=== PATIENT | male | born 1955 | race Caucasian/White ===

== ENCOUNTER 2017-02-14 06:58 | Inpatient (IN) | payer OTHER ==
[~2017-02-14] VITALS: Ht 167.6 cm; Wt 73.5 kg
[~2017-02-14 06:58] MED LIST: AMOX1TAB61 PO; LEVO50TA PO
[2017-02-14] MEDS ORDERED: IV NORMAL SALINE 1000ML BAG 1,000 ML IV ONE (07:15)
[2017-02-14] MEDS ORDERED: MORPHINE SULFATE 4 MG/ML DISP.SYRIN. IV ONE ×2 (07:15→08:15)
[2017-02-14] MEDS ORDERED: ONDANSETRON PF 4 MG/2 ML VIAL. IV ONE (07:15)
--- NOTE | 2017-02-14 07:23 | PHYS DOC ---
Past Medical History Past Medical History: Other Additional Past Medical Histor: Thyroid Past Surgical History: Hip Replacement, Other Additional Past Surgical Histo: bilateral feet Alcohol Use: None Drug Use: None Adult General Chief Complaint Chief Complaint: ABDOMINAL PAIN HPI HPI Patient is a 61 year old male who presents with abdominal pain. He states it started gradually yesterday and worsened significantly this morning. No nausea or vomiting. He's had similar symptoms in the past with the Percocet diverticulitis. He denies any known fevers, no difficulty with bowel movements or urination. His last episode did not require surgery and occurred greater than a year ago. His primary care physician is Dr. Coombs Review of Systems Review of Systems Constitutional: Denies fever or chills [] Eyes: Denies change in visual acuity, redness, or eye pain [] HENT: Denies nasal congestion or sore throat [] Respiratory: Denies cough or shortness of breath [] Cardiovascular: Denies chest pain GI: per history of present illness : Denies dysuria or hematuria [] Musculoskeletal: Denies back pain or joint pain [] Integument: Denies rash or skin lesions [] Neurologic: Denies headache, focal weakness or sensory changes [] Endocrine: Denies polyuria or polydipsia [] Current Medications Current Medications Current Medications Medications (Trade) Dose Ordered Sig/Gabrielle Start Time Stop Time Status Last Admin Dose Admin Info (Do NOT chart on this entry -- for MONITORING) 1 each PRN DAILY PRN 02/14/17 08:15 02/16/17 08:14 Iohexol (Omnipaque 300 Mg/ml) 75 ml 1X ONCE 02/14/17 08:00 02/14/17 08:01 DC 02/14/17 08:12 75 ML Morphine Sulfate 4 mg 1X ONCE 02/14/17 08:15 02/14/17 08:16 DC Ondansetron HCl (Zofran) 4 mg 1X ONCE 02/14/17 07:15 02/14/17 07:16 DC 02/14/17 07:30 4 MG Sodium Chloride 1,000 ml @ 100 mls/hr 1X ONCE 02/14/17 07:15 02/14/17 17:14 02/14/17 07:32 100 MLS/HR Allergies Allergies Allergies Coded Allergies Type Severity Reaction Last Updated Verified No Known Drug Allergies 09/23/14 No Physical Exam Physical Exam Constitutional: Well developed, well nourished, there is uncomfortable secondary to pain HENT: Normocephalic, atraumatic, bilateral external ears normal, oropharynx moist, no oral exudates, nose normal. [] Eyes: PERRLA, EOMI, conjunctiva normal, no discharge. [] Neck: Normal range of motion, no tenderness, supple, no stridor. [] Cardiovascular:Heart rate regular with regular rhythm, no murmur [] Lungs & Thorax: Bilateral breath sounds clear to auscultation [] Abdomen: Distended abdomen with diffuse tenderness to palpation, firm to touch Skin: Warm, dry, no erythema, no rash. [] Back: No tenderness, no CVA tenderness. [] Extremities: No tenderness, no cyanosis, no clubbing, ROM intact, no edema. [] Neurologic: Alert and oriented X 3, normal motor function, normal sensory function, no focal deficits noted. [] Psychologic: Affect normal, judgement normal, mood normal. [] Current Patient Data Vital Signs Vital Signs Date Time Temp Pulse Resp B/P (MAP) Pulse Ox O2 Delivery O2 Flow Rate FiO2 02/14/17 09:30 72 16 143/66 (91) 96 Room Air 02/14/17 06:58 98.1 98.1 Lab Values Laboratory Tests Test 02/14/17 07:20 02/14/17 07:40 02/14/17 08:30 White Blood Count 11.8 x10^3/uL (4.0-11.0) H Red Blood Count 4.99 x10^6/uL (4.30-5.70) Hemoglobin 15.9 g/dL (13.0-17.5) Hematocrit 46.7 % (39.0-53.0) Mean Corpuscular Volume 94 fL (79-100) Mean Corpuscular Hemoglobin 32 pg (25-35) Mean Corpuscular Hemoglobin Concent 34 g/dL (31-37) Red Cell Distribution Width 13.6 % (11.5-14.5) Platelet Count 313 x10^3/uL (140-400) Neutrophils (%) (Auto) 83 % (31-73) H Lymphocytes (%) (Auto) 9 % (24-48) L Monocytes (%) (Auto) 7 % (0-9) Eosinophils (%) (Auto) 0 % (0-3) Basophils (%) (Auto) 0 % (0-3) Neutrophils # (Auto) 9.8 x10^3uL (1.8-7.7) H Lymphocytes # (Auto) 1.1 x10^3/uL (1.0-4.8) Monocytes # (Auto) 0.8 x10^3/uL (0.0-1.1) Eosinophils # (Auto) 0.0 x10^3/uL (0.0-0.7) Basophils # (Auto) 0.0 x10^3/uL (0.0-0.2) Total Bilirubin 1.1 mg/dL (0.2-1.0) H Direct Bilirubin 0.2 mg/dL (0.0-0.2) Aspartate Amino Transferase (AST) 26 U/L (15-37) Alanine Aminotransferase (ALT) 42 U/L (16-63) Alkaline Phosphatase 79 U/L (46-116) Total Protein 7.6 g/dL (6.4-8.2) Albumin 4.1 g/dL (3.4-5.0) Lipase 119 U/L (73-393) POC Hemoglobin 16.3 g/dL (14-18) POC Hematocrit 48 % (37-52) POC Sodium 136 mmol/L (135-145) POC Potassium 4.4 mmol/L (3.5-5.0) POC Chloride 103 mmol/L (98-110) POC Total CO2 26 mmol/L (23-32) Anion Gap 13 mmol/L (6-14) POC Blood Urea Nitrogen 13 mg/dL (8-26) POC Creatinine 0.9 mg/dL (0.5-1.4) Glucose Level 111 mg/dL (70-99) H POC Ionized Calcium (Inez) 1.13 mmol/L (1.13-1.32) Urine Collection Type Unknown Urine Color Yellow Urine Clarity Clear Urine pH 6.0 Urine Specific [place] >=1.030 Urine Protein Negative mg/dL (NEG-TRACE) Urine Glucose (UA) Negative mg/dL (NEG) Urine Ketones (Stick) Negative mg/dL (NEG) Urine Blood Negative (NEG) Urine Nitrite Negative (NEG) Urine Bilirubin Negative (NEG) Urine Urobilinogen Dipstick 1.0 mg/dL (0.2 mg/dL) Urine Leukocyte Esterase Negative (NEG) Urine RBC Occ /HPF (0-2) Urine WBC Occ /HPF (0-4) Urine Squamous Epithelial Cells Occ /LPF Urine Bacteria Few /HPF (0-FEW) Urine Mucus Mod /LPF Laboratory Tests 02/14/17 07:20 Laboratory Tests 02/14/17 07:40 EKG EKG [] Radiology/Procedures Radiology/Procedures CT abdomen and pelvis: IMPRESSION: 1. Mild sigmoid diverticulitis. No drainable collection. 2. There also appears to be segmental wall thickening along the ascending colon and ileum. Correlate for inflammatory bowel disease or infection as causes a ventral colitis. Correlation with current colonoscopic results is also recommended. 3. Small hiatal hernia. Distal esophageal wall thickening. Correlate for esophagitis. 4. Small umbilical hernia containing only fat. Course & Med Decision Making Course & Med Decision Making Patient was Pertinent Labs and Imaging studies reviewed. (See chart for details) Patient was given IV morphine, started on IV fluids. Patient with an acute abdomen, likely perforated viscus. Patient appears to be stable at this time and will take for CT of the abdomen. Pt's pain uncontrolled. Additional IV morphine given. CT shows diverticulitis, possible inflammatory bowel, no perforation. Pt is feeling more comfortable, but due to the severity of his symptoms and h/o of perforation, will admit overnight and pt started on cipro and flagyl IV. Contacted Dr. Coombs for admission. Dr. Nino returned the call and accepted the pt. Carlton Disclaimer Carlton Disclaimer This electronic medical record was generated, in whole or in part, using a voice recognition dictation system. Departure Departure Impression: Primary Impression: Diverticulitis Disposition: ADMITTED INPATIENT Admitting Physician: Manny Coombs Condition: GUARDED Referrals: MANNY COOMBS MD (PCP) GEO THORPE MD Feb 14, 2017 07:23
[2017-02-14 07:28] LABS: BASO % 0 % (0-3); EOS % 0 % (0-3); HEMATOCRIT 46.7 % (39.0-53.0); HEMOGLOBIN 15.9 g/dL (13.0-17.5); LYMPH # 1.1 x10^3/uL (1.0-4.8); LYMPH % 9 % (24-48); MEAN CORPUSCULAR HEMOGLOBIN 32 pg (25-35); MEAN CORPUSCULAR HGB CONC 34 g/dL (31-37); MEAN CORPUSCULAR VOLUME 94 fL (79-100); MONO % 7 % (0-9); NEUT % 83 % (31-73); PLATELET COUNT 313 x10^3/uL (140-400); RED BLOOD COUNT 4.99 x10^6/uL (4.30-5.70); RED CELL DISTRIBUTION WIDTH 13.6 % (11.5-14.5); WHITE BLOOD COUNT 11.8 x10^3/uL (4.0-11.0)
[2017-02-14 07:42] LABS: ALBUMIN 4.1 g/dL (3.4-5.0); DIRECT BILIRUBIN 0.2 mg/dL (0.0-0.2); TOTAL BILIRUBIN 1.1 mg/dL (0.2-1.0); TOTAL PROTEIN 7.6 g/dL (6.4-8.2)
[2017-02-14 07:44] LABS: POTASSIUM ISTAT 4.4 mmol/L (3.5-5.0)
[2017-02-14] MEDS ORDERED: IOHEXOL 300 MG/ML 100ML VIAL. IV ONE (08:00)
[2017-02-14] MEDS ORDERED: CONTRAST GIVEN MC PRN (08:15)
[2017-02-14 08:49] LABS: BILIRUBIN,URINE NEGATIVE (NEG); GLUCOSE,URINE NEGATIVE (NEG); NITRITE,URINE NEGATIVE (NEG); PROTEIN,URINE NEGATIVE (NEG-TRACE)
[2017-02-14 09:11] LABS: BACTERIA,URINE FEW /HPF (0-FEW); RBC,URINE OCC /HPF (0-2); SQUAMOUS EPITHELIAL CELL,UR OCC /LPF; WBC,URINE OCC /HPF (0-4)
--- NOTE | 2017-02-14 09:46 | RAD ---
EXAM: CT abdomen/pelvis with contrast. HISTORY: Abdominal pain. TECHNIQUE: Computed tomography of the abdomen and pelvis was performed after the intravenous administration of 75 mL Omnipaque 300. COMPARISON: 09/23/2014. FINDINGS: Lung windows through the visualized portions of the bases reveal mild distal esophageal wall thickening. A hiatal hernia noted on the prior study is less well seen currently. Bone windows reveal a right total hip arthroplasty. There are no suspicious lesions. The liver, gallbladder, spleen, adrenal glands and pancreas are unremarkable. There are subcentimeter cysts in the right renal upper pole. There are no pathologically enlarged lymph nodes. There is mild wall thickening and stranding about the sigmoid colon in a region of moderate diverticulosis. This is consistent with mild acute diverticulitis. This is the same location involved on the prior study. The right colon is partially decompressed but appears to demonstrate segmental wall thickening along the ascending portion. The appendix is not inflamed. The distal small bowel is also decompressed but some distal ileal wall thickening is also suspected. There is no drainable collection. A small umbilical hernia contains only fat. IMPRESSION: 1. Mild sigmoid diverticulitis. No drainable collection. 2. There also appears to be segmental wall thickening along the ascending colon and ileum. Correlate for inflammatory bowel disease or infection as causes a ventral colitis. Correlation with current colonoscopic results is also recommended. 3. Small hiatal hernia. Distal esophageal wall thickening. Correlate for esophagitis. 4. Small umbilical hernia containing only fat. *One or more of the following individualized dose reduction techniques were utilized for this examination: 1. Automated exposure control. 2. Adjustment of the mA and/or kV according to patient size. 3. Use of iterative reconstruction technique.
[2017-02-14] MEDS ORDERED: ONDANSETRON PF 4 MG/2 ML VIAL. IV PRN (10:30)
[2017-02-14] MEDS ORDERED: MORPHINE SULFATE 2 MG/ML DISP.SYRIN. IV PRN (10:30)
[2017-02-14 10:50] VITALS: BP 127/56
[2017-02-14] MEDS ORDERED: CIPROFLOXACIN 400MG PREMIX 200 ML IV ONE (12:30)
[2017-02-14 15:23] VITALS: BP 126/69
[2017-02-14 19:00] VITALS: BP 125/72
[2017-02-14] MEDS: CIPROFLOXACIN 400MG PREMIX 200 ML IV SCH (20:37)
[2017-02-14 23:00] VITALS: BP 121/62
[2017-02-15 03:00] VITALS: BP 118/61
[2017-02-15 07:00] VITALS: BP 115/70
--- NOTE | 2017-02-15 08:03 | PDOC ---
Provider Note Provider Note [id number] MANNY MILLER MD Feb 15, 2017 08:03
--- NOTE | 2017-02-15 08:18 | HP ---
ADMIT DATE: 02/14/2017 CHIEF COMPLAINT: Abdominal pain. HISTORY OF PRESENT ILLNESS: A 61-year-old white male normally healthy, started having left-sided lower abdominal pain, malaise and nausea about 24 hours prior to admission. The pain became more severe, came to the ER and CT scan revealed evidence of sigmoid diverticulitis. He denies melena, hematochezia, fever, chills, vomiting, constipation or any injury. He has had diverticulitis once in the past about 3 years ago and had a normal colonoscopy according to him after that. PAST HISTORY: Medications include thyroid replacement only, otherwise very healthy. No allergies. No other serious medical problems. SOCIAL HISTORY: Nonsmoker and retired. 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 He is . Physically active. No history of colon cancer in the family. FAMILY HISTORY: Unremarkable. REVIEW OF SYSTEMS: No other complaints. OBJECTIVE: ENT: All within normal limits. NECK: No masses, nodes or bruits. LUNGS: Clear. CARDIOVASCULAR: Regular rate. No irregular beat, murmur or tachycardia. ABDOMEN: Tender in the left lower quadrant and suprapubic area with guarding. No masses are felt, no rebound. Upper quadrants benign. EXTREMITIES: Unremarkable. Good pedal pulses. BACK: Nontender. RECTAL: Deferred. ASSESSMENT: Acute sigmoid diverticulitis, ____ he has had a prior normal colonoscopy. He has mild hyperlipidemia. This is only other problem. PLAN: Continue IV Flagyl and Cipro for now. Advance diet and activity as tolerated. MANNY MILLER MD DR: ARAVIND/missy JOB#: [id number] / [id number]
[2017-02-15] MEDS: LEVOTHYROXINE 50 MCG TABLET PO SCH (08:43)
[2017-02-15] MEDS: CIPROFLOXACIN 400MG PREMIX 200 ML IV SCH ×2 (08:44→20:58)
[2017-02-15 11:00] VITALS: BP 111/67
[2017-02-15 15:00] VITALS: BP 129/76
[2017-02-15 19:25] VITALS: BP 121/59
[2017-02-15] MEDS: LACTOBACILLUS RHAMNOSUS GG 1 CAPSULE. PO SCH (20:58)
[2017-02-15 23:33] VITALS: BP 115/62
[2017-02-16 03:50] VITALS: BP 103/61
[2017-02-16 07:00] VITALS: BP 120/65
[2017-02-16] MEDS: LACTOBACILLUS RHAMNOSUS GG 1 CAPSULE. PO SCH (08:42)
[2017-02-16] MEDS: CIPROFLOXACIN 400MG PREMIX 200 ML IV SCH (08:43)
--- NOTE | 2017-02-16 09:40 | DISCH ---
DISCHARGE INSTRUCTIONS Condition on Discharge Condition on Discharge: Stable Activity After Discharge Activity Instructions for Disc: No restrictions Diet after Discharge Diet after Discharge: Regular Follow-Up Follow up with: dr juana Britt w MANNY MILLER MD Feb 16, 2017 09:40
--- NOTE | 2017-02-16 09:42 | PDOC ---
Provider Note Provider Note [id number] MANNY MILLER MD Feb 16, 2017 09:42
--- NOTE | 2017-02-16 09:53 | DS ---
DATE OF DISCHARGE: 02/16/2017 HOSPITAL SUMMARY: A 61-year-old white male with acute more increasingly severe left-sided lower abdominal pain. CT scan showed evidence of mild sigmoid diverticulitis and some possible thickening of the ascending colon as well. White count was mildly elevated. Rest of the chemistry profiles were unremarkable and no sign of free air or perforation on the CT was noted. He was treated with IV Flagyl and Cipro and has become afebrile and his pain is much improved. He is comfortable to be followed as an outpatient. FINAL DIAGNOSIS: Acute sigmoid diverticulitis. OPERATIONS, PROCEDURES, COMPLICATIONS, AND CONSULTATIONS: None. DISPOSITION: He will go home on Flagyl 500 mg twice a day and Cipro 500 mg twice a day for 1 more week and office followup in 1 week. High-fiber diet. He is up to date on colonoscopies. PROGNOSIS: Good. MANNY MILLER MD DR: ARAVIND/missy JOB#: [id number] / [id number]
[2017-02-16] MEDS: LEVOTHYROXINE 50 MCG TABLET PO SCH (09:59)
[2017-02-16 10:34] VITALS: BP 124/57
== END 2017-02-16 12:14 | disposition home or self-care (01) | DRG 392 ==
LOC: ER 06:58 → 5 SOUTH 09:57
PROVIDERS: ADMIT Family Medicine; ATTEND Family Medicine
DX: K57.32 Diverticulitis of large intestine without perforation or abscess without bleeding (principal); E78.5 Hyperlipidemia, unspecified; Z96.649 Presence of unspecified artificial hip joint
CPT/HCPCS: 36415; 74177; 80047; 80076; 81001; 83690; 85025; 96361; 96374; 96375; J0744; J2270; J2405; J3490; J7030; Q9967; 99285-25

== ENCOUNTER 2018-10-22 21:58 | Emergency (ER) | payer MEDICARE, OTHER ==
[~2018-10-22] VITALS: Ht 167.6 cm; Wt 69.4 kg
[2018-10-22 22:15] VITALS: BP 183/96
[2018-10-22] MEDS ORDERED: fentaNYL PF VIAL 100 MCG/2 ML VIAL IV ONE (22:15)
[2018-10-22] MEDS ORDERED: ONDANSETRON PF 4 MG/2 ML VIAL. IV ONE (22:15)
[2018-10-22] MEDS ORDERED: IV NORMAL SALINE 1000ML BAG 1,000 ML IV ONE (22:15)
[2018-10-22 22:33] LABS: BASO # 0.1 x10^3/uL (0.0-0.2); BASO % 0 % (0-3); EOS % 0 % (0-3); HEMATOCRIT 47.4 % (39.0-53.0); LYMPH # 3.9 x10^3/uL (1.0-4.8); LYMPH % 26 % (24-48); MEAN CORPUSCULAR HEMOGLOBIN 32 pg (25-35); MEAN CORPUSCULAR HGB CONC 34 g/dL (31-37); MEAN CORPUSCULAR VOLUME 95 fL (79-100); MONO # 0.9 x10^3/uL (0.0-1.1); MONO % 6 % (0-9); NEUT % 67 % (31-73); PLATELET COUNT 363 x10^3/uL (140-400); RED BLOOD COUNT 5.01 x10^6/uL (4.30-5.70); RED CELL DISTRIBUTION WIDTH 14.2 % (11.5-14.5); WHITE BLOOD COUNT 14.9 x10^3/uL (4.0-11.0)
[2018-10-22 22:42] LABS: CALCIUM 8.6 mg/dL (8.5-10.1); CREATININE 1.1 mg/dL (0.7-1.3); GFR 67.2; POTASSIUM 4.2 mmol/L (3.5-5.1)
[2018-10-22 22:48] LABS: ALBUMIN 3.4 g/dL (3.4-5.0); ALBUMIN/GLOBULIN RATIO 0.9 (1.0-1.7); TOTAL BILIRUBIN 0.5 mg/dL (0.2-1.0)
--- NOTE | 2018-10-22 22:51 | PHYS DOC ---
Past Medical History Past Medical History: Diverticulitis, Other Additional Past Medical Histor: Thyroid Past Surgical History: Hip Replacement, Other Additional Past Surgical Histo: bilateral feet Alcohol Use: None Drug Use: None Adult General Chief Complaint Chief Complaint: ABDOMINAL PAIN HPI HPI Mr. Lala is a 63yo M w/ PMH significant for diverticulosis/divert iculitis presents for LLQ sharp, shooting, constipation-like 8/10 abdominal pain that began Omega and has progressively worsened. Movement intensifies pain. Pain does not radiate to back, groin, or other abdominal quadrants. Has experienced diverticulitis on 2 other occasions with the most recent being 1-2 years ago and required admission. Patient is unable to recall when he had his last colonoscopy. Admits to hemorrhoids. Denies hematochezia, constipation, or diarrhea. Review of Systems Review of Systems Constitutional: Denies fever or chills Eyes: Denies redness or eye pain HENT: Denies nasal congestion or sore throat Respiratory: Denies cough or shortness of breath Cardiovascular: Denies chest pain or palpitations GI: Reports abdominal pain in LLQ. Denies nausea, vomiting, diarrhea, constipation, or hematochezia. : Denies dysuria or hematuria Musculoskeletal: Denies back pain or joint pain Integument: Denies rash or skin lesions Neurologic: Denies headache, focal weakness or sensory changes Complete systems were reviewed and found to be within normal limits, except as documented in this note. Current Medications Current Medications Current Medications Medications (Trade) Dose Ordered Sig/Gabrielle Start Time Stop Time Status Last Admin Dose Admin Fentanyl Citrate (Fentanyl 2ml Vial) 50 mcg 1X ONCE 10/22/18 22:15 10/22/18 22:17 DC 10/22/18 22:38 50 MCG Info (CONTRAST GIVEN -- Rx MONITORING) 1 each PRN DAILY PRN 10/22/18 23:15 10/24/18 23:14 Iohexol (Omnipaque 300 Mg/ml) 75 ml 1X ONCE 10/22/18 23:15 10/22/18 23:16 DC 10/22/18 23:11 75 ML Ondansetron HCl (Zofran) 4 mg 1X ONCE 10/22/18 22:15 10/22/18 22:17 DC 10/22/18 22:38 4 MG Sodium Chloride 1,000 ml @ 1,000 mls/hr 1X ONCE 10/22/18 22:15 10/22/18 23:14 DC 10/22/18 22:38 1,000 MLS/HR Allergies Allergies Allergies Coded Allergies Type Severity Reaction Last Updated Verified No Known Drug Allergies 09/23/14 No Physical Exam Physical Exam Constitutional: conversational, resting comfortably, well developed, well nourished, mild acute distress, non-toxic appearance HENT: Normocephalic, atraumatic, oropharynx moist Eyes: PERRL, EOMI, conjunctiva normal, no discharge Neck: no tenderness, supple, no cervical or supraclavicular LAD Cardiovascular: Heart RRR w/o gallops, rubs, or murmurs. UE radial pulses intact 2/4 b/l. Lungs & Thorax: Bilateral breath sounds clear to auscultation, no wheezing Abdomen: Soft, non-distended, active BS x4 quadrants, tenderness on light pal pation to LLQ, no ecchymosis Skin: Warm, dry, no erythema, no rash Back: No tenderness, no CVA tenderness Extremities: No tenderness, no edema Neurologic: Alert and oriented X 3, normal motor function, normal sensory function, no focal deficits noted Psychologic: Affect normal, judgement normal, mood normal Current Patient Data Vital Signs Vital Signs Date Time Temp Pulse Resp B/P (MAP) Pulse Ox O2 Delivery O2 Flow Rate FiO2 10/22/18 22:38 18 94 Room Air Lab Values Laboratory Tests Test 10/22/18 22:22 White Blood Count 14.9 x10^3/uL (4.0-11.0) H Red Blood Count 5.01 x10^6/uL (4.30-5.70) Hemoglobin 16.0 g/dL (13.0-17.5) Hematocrit 47.4 % (39.0-53.0) Mean Corpuscular Volume 95 fL (79-100) Mean Corpuscular Hemoglobin 32 pg (25-35) Mean Corpuscular Hemoglobin Concent 34 g/dL (31-37) Red Cell Distribution Width 14.2 % (11.5-14.5) Platelet Count 363 x10^3/uL (140-400) Neutrophils (%) (Auto) 67 % (31-73) Lymphocytes (%) (Auto) 26 % (24-48) Monocytes (%) (Auto) 6 % (0-9) Eosinophils (%) (Auto) 0 % (0-3) Basophils (%) (Auto) 0 % (0-3) Neutrophils # (Auto) 10.0 x10^3/uL (1.8-7.7) H Lymphocytes # (Auto) 3.9 x10^3/uL (1.0-4.8) Monocytes # (Auto) 0.9 x10^3/uL (0.0-1.1) Eosinophils # (Auto) 0.0 x10^3/uL (0.0-0.7) Basophils # (Auto) 0.1 x10^3/uL (0.0-0.2) Sodium Level 135 mmol/L (136-145) L Potassium Level 4.2 mmol/L (3.5-5.1) Chloride Level 101 mmol/L (98-107) Carbon Dioxide Level 25 mmol/L (21-32) Anion Gap 9 (6-14) Blood Urea Nitrogen 17 mg/dL (8-26) Creatinine 1.1 mg/dL (0.7-1.3) Estimated GFR (Cockcroft-Gault) 67.2 BUN/Creatinine Ratio 15 (6-20) Glucose Level 109 mg/dL (70-99) H Lactic Acid Level 0.8 mmol/L (0.4-2.0) Calcium Level 8.6 mg/dL (8.5-10.1) Magnesium Level 2.0 mg/dL (1.8-2.4) Total Bilirubin 0.5 mg/dL (0.2-1.0) Aspartate Amino Transferase (AST) 28 U/L (15-37) Alanine Aminotransferase (ALT) 44 U/L (16-63) Alkaline Phosphatase 78 U/L (46-116) Total Protein 7.0 g/dL (6.4-8.2) Albumin 3.4 g/dL (3.4-5.0) Albumin/Globulin Ratio 0.9 (1.0-1.7) L Lipase 142 U/L (73-393) Laboratory Tests 10/22/18 22:22 Laboratory Tests 10/22/18 22:22 EKG EKG [] Radiology/Procedures Radiology/Procedures [] Course & Med Decision Making Course & Med Decision Making Pertinent Labs and Imaging studies reviewed. (See chart for details) Patient presents with LLQ abdominal pain similar to that of prior diverticulitis flares. [] Dragon Disclaimer Dragon Disclaimer This electronic medical record was generated, in whole or in part, using a voice recognition dictation system. Departure Departure Impression: Primary Impression: Diverticulitis Disposition: 01 HOME, SELF-CARE Condition: STABLE Referrals: MANNY MILLER MD (PCP) NALINI CARDENAS MD Patient Instructions: Diverticulitis, [id number] Scripts Sennosides/Docusate Sodium (Colace 2-in-1 Tablet) 1 Each Tablet 1 EACH PO QHS PRN for CONSTIPATION, #30 TAB Prov: SUSAN OWEN DO 10/23/18 Ondansetron (ONDANSETRON ODT) 4 Mg Tab.rapdis 1 TAB PO PRN Q6-8HRS PRN for NAUSEA, #16 TAB Prov: SUSAN OWEN DO 10/23/18 Hydrocodone/Apap 5-325 (NORCO 5-325 TABLET) 1 Each Tablet 0.5-1 TAB PO PRN Q6HRS PRN for PAIN, #10 TAB 0 Refills Prov: SUSAN OWEN DO 10/23/18 Metronidazole (FLAGYL) 500 Mg Tablet 500 MG PO TID, #21 TAB Prov: SUSAN OWEN DO 10/23/18 Ciprofloxacin Hcl (CIPRO) 500 Mg Tablet 1 TAB PO BID, #14 TAB Prov: SUSAN OWEN DO 10/23/18 SUSAN OWEN DO Oct 22, 2018 22:51
[2018-10-22] MEDS ORDERED: IOHEXOL 300 MG/ML 100ML VIAL. IV ONE (23:15)
[2018-10-22] MEDS ORDERED: CONTRAST GIVEN. MC PRN (23:15)
--- NOTE | 2018-10-22 23:29 | RAD ---
EXAM: CT Abdomen and Pelvis with IV contrast CLINICAL HISTORY: Lower abdominal pain, evaluate for acute diverticulitis. COMPARISON: none TECHNIQUE: Helical CT of the abdomen and pelvis was performed following the administration of intravenous contrast. Axial, coronal and sagittal reformatted images were generated. PQRS compliance statement - One or more of the following individualized dose reduction techniques were utilized for this study: 1. Automated exposure control 2. Adjustment of the mA and/or kV according to patient size 3. Use of iterative reconstruction technique FINDINGS: Lower chest: Minimal dependent opacities likely atelectasis. Abdomen and Pelvis: No focal liver lesion. Gallbladder is normal. No biliary ductal dilatation. Spleen is unremarkable. Adrenal glands and pancreas are unremarkable. Symmetric nephrograms. A 1 cm left upper pole hypodense renal lesion is marginally greater than simple fluid however grossly stable to 09/23/2014. No hydronephrosis or hydroureter. Appendix is normal. No small or large bowel dilatation. Moderate colonic stool content. Diffuse colonic diverticulosis most prominent in the sigmoid colon with moderate associated pericolonic fat infiltration is seen. No free or loculated fluid collection. No free intraperitoneal gas. Small fat-containing periumbilical hernia. No abdominal or pelvic lymphadenopathy. No abdominal or pelvic ascites. Streak artifact from right total hip arthroplasty limits evaluation the pelvis. Within these constraints bladder is unremarkable. Bones: Degenerative changes of the spine are seen. IMPRESSION: Acute diverticulitis without evidence for perforation or associated free or loculated fluid collection. Electronically signed by: Tony Paniagua MD (10/22/2018 11:26 PM) [id number]
[2018-10-23] MEDS ORDERED: SENN-121 PO (00:12)
[2018-10-23] MEDS ORDERED: HYDR-3164 PO (00:12)
[2018-10-23] MEDS ORDERED: ONDA4TAB12 PO (00:12)
[2018-10-23] MEDS ORDERED: CIPR500T94 PO (00:12)
[2018-10-23] MEDS ORDERED: METR500T PO (00:12)
[2018-10-23] MEDS ORDERED: metroNIDAZOLE 500 MG TABLET PO ONE (00:15)
[2018-10-23] MEDS ORDERED: CIPROFLOXACIN HCL 250 MG TABLET. PO ONE (00:15)
[2018-10-23] MEDS ORDERED: metroNIDAZOLE 500 MG TABLET ONE (00:23)
[2018-10-23] MEDS ORDERED: CIPROFLOXACIN HCL 250 MG TABLET. ONE (00:23)
[2018-10-23] MEDS ORDERED: HYDROcodone/APAP 5/325MG 1 TAB TABLET ONE (00:24)
[2018-10-23] MEDS ORDERED: HYDROcodone/APAP 5/325MG 1 TAB TABLET PO ONE (00:30)
== END 2018-10-23 00:30 | disposition home or self-care (01) ==
LOC: ER 21:58
DX: K57.32 Diverticulitis of large intestine without perforation or abscess without bleeding (principal); Z96.649 Presence of unspecified artificial hip joint
CPT/HCPCS: 36415; 74177; 80053; 83605; 83690; 83735; 85025; 96374; 96375; 99285; J2405; J3010; J7030; Q9967

== ENCOUNTER → 2019-09-10 | Outpatient (CLI) | payer MEDICARE, OTHER ==
[~2019-09-10] MED LIST changes: +CIPR500T94 PO; +HYDR-3164 PO; +METR500T PO; +ONDA4TAB12 PO; +SENN-121 PO
--- NOTE | 2019-09-10 11:23 | KCIC ---
Three-view right elbow HISTORY: Right elbow pain for months. No significant injury. COMPARISON: None FINDINGS: Advanced degenerative changes at the elbow joints with prominent marginal osteophytes. Probable fractured osteophyte at the olecranon. Loose bodies are possible. No evidence of an acute fracture. No aggressive bone destruction. No evidence of significant soft tissue abnormality or evidence of visible joint effusion. IMPRESSION: 1. 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 Possible loose bodies. 2. No definite acute findings. 3. Consider further evaluation with MR if clinical concern persists. Electronically signed by: Sarbjit Griggs MD (09/10/2019 11:20 AM) [id number]
== END | disposition home or self-care (01) ==
LOC: KCIC 09:39
PROVIDERS: ATTEND Family Medicine
DX: M19.021 Primary osteoarthritis, right elbow (principal); M25.721 Osteophyte, right elbow
CPT/HCPCS: 73080

== ENCOUNTER → 2020-07-17 | Outpatient (CLI) | payer MEDICARE, OTHER ==
--- NOTE | 2020-07-17 17:43 | KCIC ---
EXAMINATION: MRI RIGHT ELBOW WITHOUT IV CONTRAST CLINICAL HISTORY: Right elbow pain and limited range of motion Loose bodies seen on prior radiographs . TECHNIQUE: Multiplanar multisequential images obtained through the elbow without intravenous contrast . COMPARISON: Right elbow radiographs 09/10/2019 FINDINGS: ULNAR COLLATERAL LIGAMENT: Intact. RADIAL COLLATERAL LIGAMENT: Appears grossly intact with signal changes suggestive of remote injury. COMMON EXTENSOR TENDON: Within normal limits. COMMON FLEXOR TENDON: Within normal limits. BICEPS TENDON: Within normal limits. TRICEPS TENDON: Within normal limits. BRACHIALIS TENDON: Within normal limits. ARTICULAR CARTILAGE: Multifocal subchondral reactive/cystic changes in the ulnohumeral and radiocapit ellar joints, consistent with overlying full-thickness chondral loss/fissuring. MUSCLES: Muscle bulk and signal intensity within normal limits. BONE/MARROW: No evidence of acute fracture or suspicious marrow replacing process. 1.6 x 1.1 cm corti cated ossicle along the anterior ulnohumeral joint, likely a remotely fractured osteophyte from the c oronoid process. Suspicion for additional small ossicles along the anterior and posterior ulnohumeral joint which may also be related to remotely fractured osteophytes or represent tiny joint bodies. NERVES: Partially visualized ulnar, radial, and median nerves unremarkable on limited evaluation. JOINT FLUID: Small joint effusion. 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 Electronically signed by: Nathaniel Ambriz DO (07/17/2020 5:40 PM) [id number]
== END ==
LOC: KCIC MRI 13:01
PROVIDERS: ATTEND Orthopaedic Surgery Sports Medicine
DX: M19.021 Primary osteoarthritis, right elbow (principal); M25.421 Effusion, right elbow
CPT/HCPCS: 73221

== ENCOUNTER 2021-01-15 09:12 | Emergency (ER) | payer MEDICARE, OTHER ==
[~2021-01-15] VITALS: Ht 167.6 cm; Wt 76.0 kg
[2021-01-15 09:22] VITALS: BP 172/84
== END 2021-01-15 09:40 | disposition left against medical advice (07) ==
LOC: ER 09:12
DX: R10.84 Generalized abdominal pain (principal); Z53.21 Procedure and treatment not carried out due to patient leaving prior to being seen by health care provider